=== PATIENT | male | born 1990 | race African-American/Black ===

== ENCOUNTER 2017-08-02 10:47 | Emergency (ER) | payer BC, SELFPAY ==
[2017-08-02 11:12] LABS: #Basophils 0.1 thou/uL (0.0-0.2); #Eosinphils 0.1 thou/uL (0.0-0.7); #Lymphocytes 1.8 thou/uL (1.20-3.40); #Monocytes 0.5 thou/uL (0.11-0.59); #Neutrophils 3.6 thou/uL (1.40-6.50); %Eosinophils 2.2 % (0.0-10.0); %Lymphocytes 29.3 % (21.0-51.0); %Monocytes 7.8 % (0.0-10.0); %Neutrophils 59.8 % (42.0-75.0); Hemoglobin 14.8 g/dL (14.0-18.0); Mean Corpuscular HGB CONC 32.4 g/dL (32.0-36.0); Mean Corpuscular Hemoglobin 28.9 pg (27.0-31.0); Mean Corpuscular Volume 89.3 fl (80.0-94.0); Platelet Count 195 thou/uL (130-400); RBC Distribution Width 12.3 % (11.5-14.5); Red Blood Cell (RBC) Count 5.12 mill/uL (4.70-6.10)
[2017-08-02] MEDS ORDERED: Fentanyl 100 MCG/2 ML VIAL ONE (11:36)
[2017-08-02 11:38] LABS: ALT (SGPT) 9 U/L (8-55); AST (SGOT) 14 U/L (5-34); Albumin 3.4 g/dL (3.5-5.0); Alkaline Phosphatase 66 U/L (40-150); Anion Gap 9 mmol/L (10-20); BUN (Urea Nitrogen) 8 mg/dL (8.9-20.6); Bilirubin, Total 0.6 mg/dL (0.2-1.2); Calc. Creatinine Clearance 0 mL/min (70-130); Calcium 8.4 mg/dL (7.8-10.44); Carbon Dioxide 26 mmol/L (22-29); Chloride 108 mmol/L (98-107); Estimated GFR-MDRD Greater than 90; Globulin 2.4 g/dL (2.4-3.5); Glucose 117 mg/dL (70-105); Potassium 3.6 mmol/L (3.5-5.1); Protein, Total 5.8 g/dL (6.0-8.3); Sodium 139 mmol/L (136-145)
--- NOTE | 2017-08-02 12:32 | CT ---
CT ABDOMEN AND PELVIS WITH IV CONTRAST: HISTORY: Abdominal pain. COMPARISON: 04/16/2012 FINDINGS: The lung bases are clear. The liver, spleen, kidneys, adrenal glands, and pancreas have a normal CT appearance. Nonenlarged lymph nodes are scattered about the mesentery and retroperitoneum. The urin alen bladder is incompletely distended. Lack of contrast limits evaluation of the bowel. There is no evidence of obstruction. The appendix is not well visualized. Subtle circumferential wall thickening involves the upper portion of the rig ht colon, extending to the hepatic flexure. IMPRESSION: While bowel is not well evaluated without oral contrast, there is subtle wall thickening involving th e upper right colon. Clinical correlation regarding other signs and symptoms of right-sided colitis is required. Cause is not evident. POS: BUDH
[2017-08-02 13:38] LABS: Bilirubin Negative (Negative); Blood, Urine Negative (Negative); Clarity CLEAR (Clear); Glucose, Urine (Dipstick) Negative (Negative); Leukocyte Negative (Negative); Nitrite Negative (Negative); Protein, Urine (Dipstick) Negative (Neg-Trace); Specific Gravity, Urine 1.044 (1.002-1.036); pH, Urine 6.5 (5.0-9.0)
[2017-08-02] MEDS ORDERED: ISOVUE-370 76%-LOCM 1 ML ONE (17:06)
== END 2017-08-02 14:00 | disposition home or self-care (01) ==
LOC: ERS 10:47
DX: K52.9 Noninfective gastroenteritis and colitis, unspecified (principal)
CPT/HCPCS: 36415; 74177; 80053; 81003; 85025; 96361; 96374; J3010

== ENCOUNTER 2019-10-30 09:09 | Inpatient (IN) | payer SELFPAY ==
[2019-10-30] MEDS ORDERED: Fentanyl 100 MCG/2 ML VIAL ONE ×2 (10:58→13:42)
[2019-10-30] MEDS ORDERED: Ketorolac Tromethamine 30 MG/ML VIAL ONE (10:58)
[2019-10-30] MEDS ORDERED: hydrALAZINE 20 MG/ML VIAL SLOW IVP PRN (16:19)
[2019-10-30] MEDS ORDERED: Ondansetron ODT 4 MG TAB PO PRN (16:19)
[2019-10-30] MEDS ORDERED: Dextrose 50% Abboject 50 ML SYRINGE SLOW IVP PRN (16:19)
[2019-10-30] MEDS ORDERED: Ondansetron PF 4 MG/2 ML Vial IVP PRN (16:19)
[2019-10-30] MEDS ORDERED: HumaLOG 300 UNITS/3 ML VIAL SC PRN (16:19)
[2019-10-30] MEDS ORDERED: Dextrose 5% in Water 1,000 ML IV PRN (16:19)
[2019-10-30] MEDS ORDERED: traMADol HCl 50 MG TAB PO PRN ×2 (16:22)
[2019-10-30] MEDS ORDERED: Clindamycin/D5W 600 mg/50 ml Premix Bag ONE (16:28)
[2019-10-30] MEDS ORDERED: Morphine 4 MG/ML VIAL ONE (16:29)
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
[2019-10-30] MEDS ORDERED: Chlorhexidine Gluconate 15 ML UDCUP SSP SCH (16:30)
[2019-10-30] MEDS ORDERED: Acetaminophen/Codeine Oral Solution PO PRN (17:14)
[2019-10-30 17:29] LABS: #Eosinphils 0.1 thou/uL (0.0-0.7); #Lymphocytes 1.8 thou/uL (1.20-3.40); #Monocytes 0.7 thou/uL (0.11-0.59); #Neutrophils 5.1 thou/uL (1.40-6.50); %Basophils 0.1 % (0.0-1.0); %Eosinophils 0.8 % (0.0-10.0); %Lymphocytes 23.8 % (21.0-51.0); %Neutrophils 66.3 % (42.0-75.0); Hemoglobin 15.2 g/dL (14.0-18.0); Mean Corpuscular HGB CONC 33.2 g/dL (32.0-36.0); Mean Corpuscular Hemoglobin 29.5 pg (27.0-31.0); Mean Platelet Volume 9.1 fL (7.4-10.4); Platelet Count 194 thou/uL (130-400); RBC Distribution Width 12.1 % (11.5-14.5); Red Blood Cell (RBC) Count 5.14 mill/uL (4.70-6.10); White Blood Cell (WBC) Count 7.6 thou/uL (4.8-10.8)
[2019-10-30 17:35] LABS: INR-International Normal Ratio 1.1; Prothrombin Time 13.9 sec (12.0-14.7)
[2019-10-30 17:36] LABS: PTT 28.9 SEC (22.9-36.1)
[2019-10-30 17:52] LABS: Anion Gap 15 mmol/L (10-20); BUN (Urea Nitrogen) 9 mg/dL (8.9-20.6); Calc. Creatinine Clearance 0 mL/min (70-130); Calcium 8.8 mg/dL (7.8-10.44); Carbon Dioxide 21 mmol/L (22-29); Chloride 105 mmol/L (98-107); Estimated GFR-MDRD Greater than 90; Glucose 79 mg/dL (70-105); Potassium 3.6 mmol/L (3.5-5.1); Sodium 137 mmol/L (136-145)
[2019-10-30] MEDS ORDERED: Acetaminophen 500 MG TAB PO SCH (18:00)
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
[2019-10-30] MEDS: Morphine 2 MG/ML SYRINGE SLOW IVP PRN ×2 (18:50→21:49)
[2019-10-30] MEDS: Sodium Chloride 0.9% 1,000 ML IV SCH (18:55)
[2019-10-30 19:13] VITALS: BMI 24.4
[2019-10-30] MEDS: Acetaminophen 650 MG/20.3 ML UDCUP PO SCH ×2 (19:17→22:57)
[2019-10-30] MEDS ORDERED: Famotidine 20 MG TAB PO SCH (21:00)
[2019-10-30] MEDS: Clindamycin 75 mg/5 ml Oral Suspension PO SCH (22:57)
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
[2019-10-31] MEDS: Morphine 2 MG/ML SYRINGE SLOW IVP PRN ×5 (03:04→23:32)
[2019-10-31] MEDS: Sodium Chloride 0.9% 1,000 ML IV SCH ×3 (03:06→22:53)
[2019-10-31] MEDS: Acetaminophen 650 MG/20.3 ML UDCUP PO SCH ×3 (05:46→19:38)
[2019-10-31] MEDS: Clindamycin 75 mg/5 ml Oral Suspension PO SCH ×2 (05:46→14:42)
[2019-10-31] MEDS ORDERED: Ondansetron PF 4 MG/2 ML Vial ONE (12:28)
[2019-10-31] MEDS ORDERED: Succinylcholine Chloride 20 MG/ML 10 ml SYRINGE FS ONE (12:28)
[2019-10-31] MEDS ORDERED: Rocuronium Bromide 10 MG/ML (10ML VIAL) ONE (12:28)
[2019-10-31] MEDS ORDERED: Dexamethasone 20 MG/5 ML VIAL ONE (12:28)
[2019-10-31] MEDS ORDERED: PHENYLEPHRINE-NS 100 MCG/ML 10 ML SYRINGE ONE (12:28)
[2019-10-31] MEDS ORDERED: PROPOFOL 200 MG/20 ML VIAL ONE (12:28)
[2019-10-31] MEDS ORDERED: Glycopyrrolate 0.2 MG/ML 5 ML SYRINGE ONE (12:28)
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
[2019-10-31] MEDS ORDERED: Fentanyl 100 MCG/2 ML VIAL ONE (17:30)
[2019-10-31] MEDS ORDERED: Midazolam HCl 2 mg/2 ml Vial ONE (17:30)
[2019-10-31] MEDS ORDERED: Lidocaine 2% Jelly 5 ML TUBE ONE (17:30)
[2019-10-31] MEDS ORDERED: HYDROmorphone 0.5 MG/0.5 ML SYRINGE ONE ×2 (17:30→18:30)
[2019-10-31] MEDS ORDERED: AFRIN NASAL MIST 15 ML BOT ONE (17:30)
[2019-10-31] MEDS ORDERED: Lidocaine 1% w/Epinephrine 1:100K 20 ML VIAL ONE (17:33)
[2019-10-31] MEDS ORDERED: Bacitracin Zinc Ointment 30 gm TUBE ONE (17:33)
[2019-10-31] MEDS ORDERED: Chlorhexidine Gluconate 15 ML UDCUP SSP ONE (17:33)
[2019-10-31] MEDS ORDERED: Promethazine HCl 25 MG/ML VIAL IM PRN (20:26)
[2019-10-31] MEDS ORDERED: Promethazine HCl 25 MG/ML VIAL SLOW IVP PRN (20:26)
[2019-10-31] MEDS ORDERED: HYDROmorphone 2 MG/ML VIAL SLOW IVP PRN (20:26)
[2019-10-31] MEDS ORDERED: Ondansetron HCl/PF 4 MG/2 ML Vial IVP PRN (20:26)
[2019-10-31] MEDS ORDERED: PACU-Morphine 4MG/ML VIAL SLOW IVP PRN (20:26)
[2019-10-31] MEDS ORDERED: Morphine Sulfate 2 MG/ML SYRINGE SLOW IVP PRN (20:26)
[2019-10-31] MEDS ORDERED: Meperidine HCl/PF 25 MG/ML VIAL SLOW IVP PRN (20:26)
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
[2019-11-01] MEDS: Acetaminophen 650 MG/20.3 ML UDCUP PO SCH ×2 (00:49→05:33)
[2019-11-01] MEDS: Morphine 2 MG/ML SYRINGE SLOW IVP PRN (01:50)
[2019-11-01] MEDS: Clindamycin 75 mg/5 ml Oral Suspension PO SCH (01:57)
[2019-11-01] MEDS: Sodium Chloride 0.9% 1,000 ML IV SCH (01:57)
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
[2019-11-01] MEDS: Acetaminophen/Codeine 120-12MG/5 ML UDCUP PO PRN ×2 (04:24→10:45)
[2019-11-01] MEDS: Clindamycin/D5W 600 MG in Premix Bag 1 BAG IVPB SCH ×2 (04:58→10:45)
[2019-11-01] MEDS ORDERED: Morphine 4 MG/ML VIAL SLOW IVP PRN (08:20)
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
[2019-11-01] MEDS ORDERED: Chlorhexidine Gluconate 15 ML UDCUP SSP SCH (09:00)
[2019-11-01 11:28] VITALS: BP 132/81; TEMP 98.9
[2019-11-01] MEDS ORDERED: Ibuprofen 100 MG/5 ML UDCUP PO SCH (14:00)
[2019-11-01] MEDS ORDERED: Enoxaparin Sodium 40 MG/0.4 ML SYRINGE SC SCH (21:00)
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
== END 2019-11-01 13:53 | disposition home or self-care (01) | DRG 131 ==
LOC: ERS 09:09 → SURG A 18:26
PROVIDERS: ADMIT Surgery; ATTEND Surgery
PROC: 0NST04Z Reposition Right Mandible with Internal Fixation Device, Open Approach (ICD-10-PCS; principal; 2019-10-31)
PROC: 0NSTXZZ Reposition Right Mandible, External Approach (ICD-10-PCS; 2019-10-31)
PROC: 0CTX0Z1 Resection of Lower Tooth, Multiple, Open Approach (ICD-10-PCS; 2019-10-31)
PROC: 0CTW0Z1 Resection of Upper Tooth, Multiple, Open Approach (ICD-10-PCS; 2019-10-31)
DX: S02.66XA Fracture of symphysis of mandible, initial encounter for closed fracture (principal); S02.31XA Fracture of orbital floor, right side, initial encounter for closed fracture; F17.290 Nicotine dependence, other tobacco product, uncomplicated; S02.40EA Zygomatic fracture, right side, initial encounter for closed fracture; F41.9 Anxiety disorder, unspecified; F32.9 Major depressive disorder, single episode, unspecified; Y04.0XXA Assault by unarmed brawl or fight, initial encounter; K02.9 Dental caries, unspecified
CPT/HCPCS: 36415; 70486; 80048; 85025; 85610; 85730; 86850; 86900; 86901; 96365; 96375; 96376; C1713; J1100; J1170; J1885; J2250; J2270; J2405; J2704; J3010; J3490

== ENCOUNTER 2020-11-11 22:35 | Emergency (ER) | payer OTHER, SELFPAY ==
[2020-11-12] MEDS ORDERED: Ketorolac Tromethamine 30 MG/ML VIAL ONE
== END 2020-11-12 00:25 | disposition home or self-care (01) ==
LOC: ERS 22:35
DX: S80.02XA Contusion of left knee, initial encounter (principal); F17.200 Nicotine dependence, unspecified, uncomplicated; V03.99XA Pedestrian with other conveyance injured in collision with car, pick-up truck or van, unspecified whether traffic or nontraffic accident, initial encounter
CPT/HCPCS: 96372; J1885

== ENCOUNTER 2021-01-04 18:27 | Emergency (ER) | payer SELFPAY ==
[2021-01-04 19:43] LABS: #Eosinphils 0.2 thou/uL (0.0-0.7); #Lymphocytes 1.4 thou/uL (1.20-3.40); #Monocytes 0.4 thou/uL (0.11-0.59); #Neutrophils 2.8 thou/uL (1.40-6.50); %Basophils 0.9 % (0.0-1.0); %Eosinophils 4.5 % (0.0-10.0); %Monocytes 8.6 % (0.0-10.0); Hemoglobin 13.7 g/dL (14.0-18.0); Mean Corpuscular HGB CONC 34.8 g/dL (32.0-36.0); Mean Corpuscular Hemoglobin 30.7 pg (27.0-31.0); Mean Corpuscular Volume 88.1 fL (78.0-98.0); Mean Platelet Volume 8.7 fL (7.4-10.4); Platelet Count 195 thou/uL (130-400); RBC Distribution Width 12.1 % (11.5-14.5); Red Blood Cell (RBC) Count 4.47 mill/uL (4.70-6.10); White Blood Cell (WBC) Count 4.9 thou/uL (4.8-10.8)
[2021-01-04 20:04] LABS: ALT (SGPT) 16 U/L (8-55); AST (SGOT) 33 U/L (5-34); Albumin 3.8 g/dL (3.5-5.0); Alkaline Phosphatase 100 U/L (40-110); Anion Gap 15 mmol/L (10-20); BUN (Urea Nitrogen) 14 mg/dL (8.9-20.6); Bilirubin, Total 0.2 mg/dL (0.2-1.2); Calc. Creatinine Clearance 0 mL/min (70-130); Calcium 8.8 mg/dL (7.8-10.44); Carbon Dioxide 22 mmol/L (22-29); Chloride 105 mmol/L (98-107); Globulin 3.4 g/dL (2.4-3.5); Glucose 154 mg/dL (70-105); Lipase 21 U/L (8-78); Potassium 4.1 mmol/L (3.5-5.1); Protein, Total 7.2 g/dL (6.0-8.3); Sodium 138 mmol/L (136-145)
[2021-01-04] MEDS ORDERED: Dicyclomine 20 MG TAB ONE (21:03)
[2021-01-04 21:07] LABS: Bilirubin Negative (Negative); Blood, Urine Negative (Negative); Clarity Clear (Clear); Glucose, Urine (Dipstick) Normal (Negative); Ketone, Urine Negative (Negative); Leukocyte Negative Leu/uL (Negative); Nitrite Negative (Negative); Protein, Urine (Dipstick) Negative (Neg-Trace); Specific Gravity, Urine 1.028 (1.002-1.036); pH, Urine 5.5 (5.0-9.0)
== END 2021-01-04 22:11 | disposition home or self-care (01) ==
LOC: ERS 18:27
DX: R11.2 Nausea with vomiting, unspecified (principal); R19.7 Diarrhea, unspecified; F17.210 Nicotine dependence, cigarettes, uncomplicated
CPT/HCPCS: 36415; 80053; 81003; 83690; 85025; 99284

== ENCOUNTER 2022-07-16 11:23 | Emergency (ER) | payer OTHER ==
[2022-07-16] MEDS ORDERED: Ondansetron PF 4 MG/2 ML Vial ONE (11:47)
[2022-07-16] MEDS ORDERED: Morphine 4 MG/ML VIAL ONE (11:47)
[2022-07-16 12:03] LABS: #Eosinphils 0.1 thou/uL (0.0-0.7); #Lymphocytes 1.9 thou/uL (1.20-3.40); #Monocytes 0.5 thou/uL (0.11-0.59); #Neutrophils 4.6 thou/uL (1.40-6.50); %Basophils 0.2 % (0.0-1.0); %Eosinophils 1.3 % (0.0-10.0); %Lymphocytes 27.1 % (21.0-51.0); %Monocytes 6.3 % (0.0-10.0); %Neutrophils 65.1 % (42.0-75.0); Hemoglobin 15.7 g/dL (14.0-18.0); Mean Corpuscular HGB CONC 34.4 g/dL (32.0-36.0); Mean Corpuscular Hemoglobin 30.5 pg (27.0-31.0); Mean Corpuscular Volume 88.7 fl (78.0-98.0); Mean Platelet Volume 8.6 fL (7.4-10.4); Platelet Count 200 10x3/uL (130-400); RBC Distribution Width 12.2 % (11.5-14.5); Red Blood Cell (RBC) Count 5.14 mill/uL (4.70-6.10)
[2022-07-16 12:28] LABS: ALT (SGPT) 14 U/L (8-55); AST (SGOT) 13 U/L (5-34); Albumin 3.5 g/dL (3.5-5.0); Alkaline Phosphatase 74 U/L (40-110); Anion Gap 12 mmol/L (10-20); BUN (Urea Nitrogen) 5 mg/dL (8.9-20.6); Bilirubin, Total 0.4 mg/dL (0.2-1.2); Calc. Creatinine Clearance 0 mL/min (70-130); Calcium 8.6 mg/dL (7.8-10.44); Carbon Dioxide 23 mmol/L (22-29); Chloride 108 mmol/L (98-107); Estimated GFR 110; Globulin 2.6 g/dL (2.4-3.5); Glucose 95 mg/dL (70-105); Potassium 3.8 mmol/L (3.5-5.1); Protein, Total 6.1 g/dL (6.0-8.3); Sodium 139 mmol/L (136-145)
[2022-07-16] MEDS ORDERED: Iopamidol-370 76% 500 ML 1 ML ONE (12:32)
== END 2022-07-16 13:39 | disposition home or self-care (01) ==
LOC: ERS 11:23
DX: K52.9 Noninfective gastroenteritis and colitis, unspecified (principal); F17.210 Nicotine dependence, cigarettes, uncomplicated
CPT/HCPCS: 36415; 74177; 80053; 83605; 85025; 96361; 96374; 96375; J2270; J2405